=== PATIENT | male | born 1965 | race Caucasian/White ===

== ENCOUNTER 2025-01-10 14:14 | Outpatient (CLI) | payer OTHER, SELFPAY ==
--- OUTSIDE RECORDS SUMMARY | 2025-01-10 14:23 | XMS_ITS | Referral Summary ---
Author Organization [facility] Address [address] [place] [id number] Care Team Providers Care Outdoor Recreation Specialist Name Role Phone Rocco Borrego MD Primary Care Provider [phone] Allergies No known active allergies Medications aspirin 81 mg tablet Take 81 mg by mouth daily. Active apixaban (ELIQUIS) 5 mg tablet 5 mg 2 (two) times a day. Active amLODIPine (NORVASC) 10 mg tablet Take 10 mg by mouth daily. Active spironolactone (ALDACTONE) 25 mg tablet Take 25 mg by mouth daily. 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 Gender Identity Not on file Sexual Orientation Not on file Last Filed Vital Signs Vital Sign Reading Time Taken Comments Blood Pressure 132/84 07/08/2017 2:31 PM COOK LARDER Pulse 123 07/08/2017 2:31 PM COOK [employer]ARDER Temperature - - Respiratory Rate 18 07/08/2017 2:31 PM COOK LARDER Oxygen Saturation - - Inhaled Oxygen Concentration - - Weight 72.1 kg (159 lb) 07/29/2017 10:20 AM COOK LARDER Height 180.3 cm (5' 11 ) 07/29/2017 10:20 AM COOK LARDER Body Mass Index 22.18 07/29/2017 10:20 AM COOK LARDER Plan of Treatment Not on file Insurance [facility] PL[facility] [employer] Care Teams Outdoor Recreation Specialist Relationship Specialty Start Date End Date Rocco Borrego MD PCP - General Family Medicine 06/29/17
--- OUTSIDE RECORDS SUMMARY | 2025-01-10 14:23 | XMS_ITS | Clinical Summary ---
Author Organization [facility] Address [address] [place] [id number] Care Team Providers Care Frame Wirer Name Role Phone Rocco Borrego MD Primary Care Provider [phone] Allergies No known active allergies Medications aspirin [...] 07/08/2017 Tobacco abuse 07/08/2017 Essential hypertension 07/08/2017 Family History Medical History Relation Name Comments Lung cancer Father Relation Name Status Comments Brother Alive Father Mother Sister Alive Social History Tobacco Use Types Packs/Day Years Used Date Smoking Tobacco: Every Day Cigarettes Smokeless Tobacco: Never Comments:1 to 1.5 packs per day Personal Safety Answer Date Recorded Getting School Help Needed Not on file 11/06 Sex and Gender Information Value Date Recorded Sex Assigned at Not on file Legal Sex Male 9: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 Gender Identity Not on file Sexual Orientation Not on file Obstetrics History Last Filed Vital Signs Vital Sign Reading Time Taken Comments Blood Pressure 132/84 07/08/2017 2:31 PM CERTIFIED PERSONAL FINANCE COUNSELOR Pulse 123 07/08/2017 2:31 PM CERTIFIED PERSONAL FINANCE COUNSELOR Temperature - - Respiratory Rate 18 07/08/2017 2:31 PM CERTIFIED PERSONAL FINANCE COUNSELOR Oxygen Saturation - - Inhaled Oxygen Concentration - - Weight 72.1 kg (159 lb) 07/29/2017 10:20 AM CERTIFIED PERSONAL FINANCE COUNSELOR Height 180.3 cm (5' 11 ) 07/29/2017 10:20 AM CERTIFIED PERSONAL FINANCE COUNSELOR Body Mass Index 22.18 07/29/2017 10:20 AM CERTIFIED PERSONAL FINANCE COUNSELOR Plan of Treatment Not on file Insurance [facility] CHOICE [facility] HMO/PPO Address: [address] [address] [place] [address] [facility] CHOICE [facility] HMO/PPO Address: [address] [address] [place] [address] Care Teams Frame Wirer Relationship Specialty Start Date End Date Rocco Borrego MD PCP - General Family Medicine 06/29/17
[2025-01-10 19:50] LABS: Anion Gap 7 mmol/L (4-12); Blood Urea Nitrogen 8 mg/dL (9-20); Calcium 8.3 mg/dL (8.4-10.2); Carbon Dioxide 25 mmol/L (22-30); Chloride 104 mmol/L (98-107); Estimated Glomerular Filt Rate > 60; Glucose 58 mg/dL (65-110); Magnesium 1.7 mg/dL (1.6-2.3); Potassium 3.8 mmol/L (3.4-5.0); Sodium 136 mmol/L (137-145)
== END 2025-01-10 14:15 | disposition home or self-care (01) ==
LOC: ANHGOSHLAB 14:15
PROVIDERS: PCP Family Medicine; Visit Provider Family Medicine
DX: E87.6 Hypokalemia (principal); E83.42 Hypomagnesemia; C15.9 Malignant neoplasm of esophagus, unspecified
CPT/HCPCS: 36415; 80048; 83735

== ENCOUNTER 2025-02-12 15:13 | Outpatient (CLI) | payer OTHER, SELFPAY ==
[2025-02-12 20:44] LABS: Alanine Aminotransferase 15 U/L (6-50); Albumin Level 3.2 g/dL (3.5-5.1); Alkaline Phosphatase 105 U/L (38-126); Anion Gap 7 mmol/L (4-12); Aspartate Amino Transferase 27 U/L (17-59); Bilirubin,Total 1.1 mg/dL (0.2-1.3); Blood Urea Nitrogen 5 mg/dL (9-20); Calcium 8.2 mg/dL (8.4-10.2); Carbon Dioxide 25 mmol/L (22-30); Chloride 105 mmol/L (98-107); Estimated Glomerular Filt Rate > 60; Glucose 105 mg/dL (65-110); Magnesium 1.5 mg/dL (1.6-2.3); Potassium 2.7 mmol/L (3.4-5.0); Sodium 137 mmol/L (137-145); Total Protein 6.2 g/dL (6.3-8.2)
== END 2025-02-12 15:14 | disposition home or self-care (01) ==
LOC: ANHGOSHLAB 15:15
PROVIDERS: PCP Family Medicine; Visit Provider Family Medicine
DX: E87.6 Hypokalemia (principal); E83.42 Hypomagnesemia; I12.9 Hypertensive chronic kidney disease with stage 1 through stage 4 chronic kidney disease, or unspecified chronic kidney disease; N18.9 Chronic kidney disease, unspecified
CPT/HCPCS: 36415; 80053; 83735